=== PATIENT | male | born 1955 | race Caucasian/White ===

== ENCOUNTER 2017-09-02 02:23 | Emergency (ER) | payer OTHER ==
[2017-09-02 03:01] LABS: #Eosinphils 0.1 thou/uL (0.0-0.7); #Lymphocytes 1.1 thou/uL (1.20-3.40); #Neutrophils 5.6 thou/uL (1.40-6.50); %Basophils 0.4 % (0.0-1.0); %Eosinophils 1.3 % (0.0-10.0); %Lymphocytes 14.3 % (21.0-51.0); %Monocytes 12.2 % (0.0-10.0); %Neutrophils 71.8 % (42.0-75.0); Hemoglobin 15.7 g/dL (14.0-18.0); Mean Corpuscular HGB CONC 33.1 g/dL (32.0-36.0); Mean Corpuscular Hemoglobin 31.4 pg (27.0-31.0); Mean Corpuscular Volume 94.7 fl (80.0-94.0); Mean Platelet Volume 6.2 fL (7.4-10.4); Platelet Count 191 thou/uL (130-400); RBC Distribution Width 12.2 % (11.5-14.5); White Blood Cell (WBC) Count 7.8 thou/uL (4.8-10.8)
[2017-09-02] MEDS ORDERED: Morphine 4 MG/ML VIAL ONE (03:08)
[2017-09-02 03:22] LABS: ALT (SGPT) 28 U/L (8-55); AST (SGOT) 23 U/L (5-34); Alkaline Phosphatase 47 U/L (40-150); Anion Gap 7 mmol/L (10-20); BUN (Urea Nitrogen) 17 mg/dL (8.4-25.7); Bilirubin, Total 0.3 mg/dL (0.2-1.2); CK (CPK) 79 U/L (30-200); Calc. Creatinine Clearance 0 mL/min (70-130); Calcium 9.6 mg/dL (7.8-10.44); Carbon Dioxide 29 mmol/L (22-29); Chloride 107 mmol/L (98-107); Estimated GFR-MDRD 90; Globulin 2.7 g/dL (2.4-3.5); Glucose 138 mg/dL (70-105); Potassium 4.3 mmol/L (3.5-5.1); Protein, Total 6.7 g/dL (6.0-8.3); Sodium 139 mmol/L (136-145)
[2017-09-02 03:25] LABS: Troponin I Less than 0.010 ng/mL (< 0.028)
[2017-09-02] MEDS ORDERED: Lidocaine Viscous Sol 2% 15 ml UD Cup ONE (04:17)
[2017-09-02] MEDS ORDERED: Mag-Al 1200 mg/1200 mg/30 ML UDCUP ONE (04:17)
--- NOTE | 2017-09-02 08:21 | CT ---
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 Pain is central in location, worse with deep breathing, sharp in nature. Denies similar symptoms i n past. TECHNIQUE: Axial computed tomographic angiography images of the chest with intravenous contrast using pulmonary embolism protocol. MIP reconstructed images were created and reviewed. Coronal and sagittal reformatted images were created and reviewed. Oblique reformatted images were created and reviewed. COMPARISON: No relevant prior studies available. FINDINGS: Pulmonary arteries: No evidence of pulmonary embolism. Aorta: Normal caliber thoracic aorta without dissection or aneurysm. Lungs: No alveolar infiltrate. Minimal atelectasis within the posterior right lung and posteromedial left lower lobe. Left lower lobe linear parenchymal scarring or subsegmental collapse / atelectasis. Small calcified granulomas left mid lung. No mass. Pleural space: No pleural fluid collection. No pneumothorax. Heart: No pericardial effusion. No evidence of RV dysfunction. Bones/joints: No acute fracture. No dislocation. Soft tissues: Unremarkable. Lymph nodes: No pathologically enlarged lymph nodes. Pancreas: Pancreatic fatty infiltration. IMPRESSION: 1. No evidence of pulmonary embolism. 2. No alveolar infiltrate. 3. Minimal atelectasis within the posterior right lung and posteromedial left lower lobe. Left lower lobe linear parenchymal scarring or subsegmental collapse / atelectasis. Thank you for allowing us to participate in the care of your patient. Dictated and Authenticated by: Wyatt Champion MD 09/02/2017 4:26 AM Central Time ([place] & [place]) FINAL REPORT EMERGENCY AFTER HOURS CT ANGIO OF CHEST PERFORMED WITH IV CONTRAST ENHANCEMENT WITH 3D RECONSTRUCTION S: Date: 09/02/17 HISTORY: Chest pain, onset today. Shortness of breath. FINDINGS: The lungs are clear of any confluent infiltrative process. There are atelectatic changes in both lung bases. No pulmonary nodules are identified. No significant mediastinal or hilar adenopathy. Thoracic aorta is normal in caliber. No signs for dissection. There is fairly good pulmonary artery o pacification. There is no CT evidence for pulmonary embolus. Visualized liver parenchyma shows no focal findings. Right and left adrenal glands are normal in appe arance. IMPRESSION: No CT evidence for pulmonary embolus. This report is in agreement with the preliminary report issued by [facility]. POS: [facility]
--- NOTE | 2017-09-02 08:44 | RAD ---
PORTABLE CHEST 1 VIEW: Date: 09/02/17 Time: 0247 hours HISTORY: Chest pain. FINDINGS: Comparison made with exam of 11/03/04. The heart size is borderline. No focal areas of consolidation, pneumothorax, eve pulmonary edema, o r pleural effusions are seen. IMPRESSION: No acute process. POS: [facility]
[2017-09-02] MEDS ORDERED: ISOVUE-370 76%-LOCM 1 ML ONE (11:39)
== END 2017-09-02 05:37 | disposition home or self-care (01) ==
LOC: ERS 02:23
DX: R07.89 Other chest pain (principal)
CPT/HCPCS: 71045; 71275; 80053; 82553; 83880; 84484; 85025; 93005; 94760; 96374; J2270

== ENCOUNTER 2019-04-09 15:18 | Emergency (ER) | payer OTHER ==
[~2019-04-09 15:18] MED LIST: Iopamidol-370 76% 500 ML 1 ML ONE
--- NOTE | 2019-04-09 16:11 | RAD ---
XR Chest 1 View Portable HISTORY: Cough, congestion, shortness of breath COMPARISON: 09/02/2017 FINDINGS: The heart size is enlarged.. The lungs are well expanded without focal areas of consolidati on, pneumothorax or pleural effusions. IMPRESSION: No radiographic evidence of acute cardiopulmonary process.
[2019-04-09 16:17] LABS: #Eosinphils 0.1 thou/uL (0.0-0.7); #Lymphocytes 1.4 thou/uL (1.20-3.40); #Monocytes 0.6 thou/uL (0.11-0.59); #Neutrophils 2.6 thou/uL (1.40-6.50); %Basophils 0.8 % (0.0-1.0); %Eosinophils 1.9 % (0.0-10.0); %Lymphocytes 29.5 % (21.0-51.0); %Monocytes 12.7 % (0.0-10.0); %Neutrophils 55.1 % (42.0-75.0); Hemoglobin 16.5 g/dL (14.0-18.0); Mean Corpuscular HGB CONC 32.2 g/dL (32.0-36.0); Mean Corpuscular Hemoglobin 30.5 pg (27.0-31.0); Mean Corpuscular Volume 94.7 fL (78.0-98.0); Mean Platelet Volume 8.1 fL (7.4-10.4); Platelet Count 164 thou/uL (130-400); RBC Distribution Width 12.6 % (11.5-14.5); White Blood Cell (WBC) Count 4.7 thou/uL (4.8-10.8)
[2019-04-09 16:40] LABS: ALT (SGPT) 42 U/L (8-55); AST (SGOT) 37 U/L (5-34); Albumin 3.7 g/dL (3.4-4.8); Alkaline Phosphatase 52 U/L (40-110); Anion Gap 15 mmol/L (10-20); BUN (Urea Nitrogen) 15 mg/dL (8.4-25.7); Bilirubin, Total 0.2 mg/dL (0.2-1.2); Calc. Creatinine Clearance 0 mL/min (70-130); Calcium 8.4 mg/dL (7.8-10.44); Carbon Dioxide 25 mmol/L (23-31); Chloride 104 mmol/L (98-107); Estimated GFR-MDRD 83; Globulin 3.8 g/dL (2.4-3.5); Glucose 113 mg/dL (80-115); Lipase 18 U/L (8-78); Potassium 4.8 mmol/L (3.5-5.1); Protein, Total 7.5 g/dL (5.8-8.1); Sodium 139 mmol/L (136-145)
[2019-04-09 16:53] LABS: Bilirubin Negative (Negative); Blood, Urine Negative (Negative); Clarity Clear (Clear); Glucose, Urine (Dipstick) Normal (Negative); Leukocyte Negative Leu/uL (Negative); Nitrite Negative (Negative); Protein, Urine (Dipstick) 20 mg/dL (Neg-Trace); Urobilinogen Normal mg/dL (Less than 2)
--- NOTE | 2019-04-09 17:50 | CT ---
CT ANGIO OF CHEST PERFORMED WITH IV CONTRAST ENHANCEMENT AND 3D RECONSTRUCTIONS: Date: 04/09/19 HISTORY: Cough, congestion, and shortness of breath. COMPARISON: 09/02/17 exam. FINDINGS: The lung bases are clear of any infiltrative process. Linear interstitial change in the bases compati ble with some atelectatic change. There is no significant mediastinal, hilar, or axillary adenopathy. The thoracic aorta is normal in c aliber. There is fairly good pulmonary artery opacification. Small peripheral emboli are not definite ly excluded, but I see no evidence for pulmonary embolus. Visualized liver parenchyma shows no focal findings. IMPRESSION: No CT evidence of pulmonary embolus. POS: [facility]
== END 2019-04-09 18:20 | disposition home or self-care (01) ==
LOC: ERS 15:18
DX: J45.901 Unspecified asthma with (acute) exacerbation (principal); Z79.899 Other long term (current) drug therapy; Z79.51 Long term (current) use of inhaled steroids
CPT/HCPCS: 71045; 71275; 80053; 81003; 83690; 83880; 84484; 85025; 85379; 93005; 94640; J7620; Q9967

== ENCOUNTER 2021-04-15 06:47 | Inpatient (IN) | payer OTHER ==
[2021-04-15 07:50] LABS: Hemoglobin 15.8 g/dL (14.0-18.0); Mean Corpuscular Hemoglobin 31.5 pg (27.0-31.0); Mean Corpuscular Volume 95.5 fL (78.0-98.0); Mean Platelet Volume 7.5 fL (7.4-10.4); Platelet Count 140 thou/uL (130-400); RBC Distribution Width 12.2 % (11.5-14.5); Red Blood Cell (RBC) Count 5.02 mill/uL (4.70-6.10); White Blood Cell (WBC) Count 4.4 thou/uL (4.8-10.8)
[2021-04-15] MEDS ORDERED: Dexamethasone 10 MG/ML VIAL ONE (07:50)
[2021-04-15 08:06] LABS: ALT (SGPT) 26 U/L (8-55); AST (SGOT) 36 U/L (5-34); Albumin 3.7 g/dL (3.4-4.8); Alkaline Phosphatase 40 U/L (40-110); Anion Gap 14 mmol/L (10-20); BUN (Urea Nitrogen) 15 mg/dL (8.4-25.7); Bilirubin, Total 0.3 mg/dL (0.2-1.2); Calc. Creatinine Clearance 0 mL/min (70-130); Calcium 8.8 mg/dL (7.8-10.44); Carbon Dioxide 29 mmol/L (23-31); Chloride 95 mmol/L (98-107); Globulin 3.3 g/dL (2.4-3.5); Glucose 124 mg/dL (80-115); Potassium 4.1 mmol/L (3.5-5.1); Sodium 134 mmol/L (136-145)
[2021-04-15 08:11] LABS: Band 25 % (5-11); Lymphocytes 11 % (21-51); MDiff Complete? YES; Monocytes 9 % (0-10); Myelocyte 1 % (0-0); Neutrophil 52 % (42-75); Platelet Morphology Comment Appears Adequate; Polychromasia SLIGHT = 2-3 cells (100X) (0-2/hpf); Reactive Lymphocytes 2 % (0-10)
[2021-04-15] MEDS ORDERED: Azithromycin 500 MG VIAL ONE (09:22)
[2021-04-15] MEDS ORDERED: cefTRIAXone\\ROCEPHIN 1 GM VIAL ONE (09:22)
[2021-04-15] MEDS ORDERED: Promethazine HCl 25 MG in Sodium Chloride 0.9% 50 ML IVPB PRN (11:54)
[2021-04-15] MEDS ORDERED: Bisacodyl 5 MG TAB PO PRN (11:54)
[2021-04-15] MEDS ORDERED: hydrALAZINE 20 MG/ML VIAL SLOW IVP PRN (11:54)
[2021-04-15] MEDS: GUAIFENESIN SF SOLN 200 MG/10 ML UDCUP PO PRN (21:01)
[2021-04-15] MEDS: Benzonatate 100 MG CAP PO PRN (21:01)
[2021-04-15] MEDS: Acetaminophen 325 MG TAB PO PRN (21:01)
[2021-04-15] MEDS: Melatonin 3 MG TAB PO PRN (21:01)
[2021-04-15] MEDS: Dexamethasone 10 MG/ML VIAL SLOW IVP SCH (21:06)
[2021-04-15] MEDS ORDERED: Ondansetron PF 4 MG/2 ML Vial IVP PRN (21:09)
[2021-04-15] MEDS ORDERED: Ondansetron ODT 4 MG TAB SL PRN (21:09)
[2021-04-15] MEDS ORDERED: Acetaminophen 325 MG TAB PO PRN (21:09)
[2021-04-16 08:00] LABS: #Lymphocytes 0.6 thou/uL (1.20-3.40); #Monocytes 0.4 thou/uL (0.11-0.59); #Neutrophils 2.6 thou/uL (1.40-6.50); %Basophils 0.2 % (0.0-1.0); %Eosinophils 0.2 % (0.0-10.0); %Lymphocytes 16.6 % (21.0-51.0); %Monocytes 10.7 % (0.0-10.0); %Neutrophils 72.3 % (42.0-75.0); Hemoglobin 15.2 g/dL (14.0-18.0); Mean Corpuscular Hemoglobin 31.1 pg (27.0-31.0); Mean Corpuscular Volume 97.4 fL (78.0-98.0); Mean Platelet Volume 7.5 fL (7.4-10.4); Platelet Count 158 thou/uL (130-400); RBC Distribution Width 12.4 % (11.5-14.5); Red Blood Cell (RBC) Count 4.89 mill/uL (4.70-6.10); White Blood Cell (WBC) Count 3.7 thou/uL (4.8-10.8)
[2021-04-16 08:20] LABS: Anion Gap 13 mmol/L (10-20); BUN (Urea Nitrogen) 15 mg/dL (8.4-25.7); Calc. Creatinine Clearance 179 mL/min (70-130); Calcium 8.5 mg/dL (7.8-10.44); Carbon Dioxide 28 mmol/L (23-31); Chloride 100 mmol/L (98-107); Glucose 118 mg/dL (80-115); Potassium 4.3 mmol/L (3.5-5.1); Sodium 137 mmol/L (136-145)
[2021-04-16] MEDS: cefTRIAXone\\ROCEPHIN 1 GM in Sodium Chloride 0.9% 100 ML IVPB SCH (09:04)
[2021-04-16] MEDS: Dexamethasone 10 MG/ML VIAL SLOW IVP SCH ×2 (09:05→19:48)
[2021-04-16] MEDS: Enoxaparin Sodium 40 MG/0.4 ML SYRINGE SC SCH (09:05)
[2021-04-16] MEDS: Zinc Sulfate 220 MG CAP PO SCH (09:05)
[2021-04-16] MEDS: Ascorbic Acid 500 mg Chewable Tablet PO SCH (09:05)
[2021-04-16] MEDS: Azithromycin 500 MG in Sodium Chloride 0.9% 250 ML 250 ML IVPB SCH (10:56)
[2021-04-16] MEDS: Benzonatate 100 MG CAP PO PRN ×2 (13:05→19:54)
[2021-04-16] MEDS: GUAIFENESIN SF SOLN 200 MG/10 ML UDCUP PO PRN ×2 (13:05→19:54)
[2021-04-16] MEDS: Melatonin 3 MG TAB PO PRN (19:54)
[2021-04-16] MEDS: Acetaminophen 325 MG TAB PO PRN (19:55)
[2021-04-17] MEDS: GUAIFENESIN SF SOLN 200 MG/10 ML UDCUP PO PRN ×3 (00:03→20:08)
[2021-04-17] MEDS: Zinc Sulfate 220 MG CAP PO SCH (09:29)
[2021-04-17] MEDS: Ascorbic Acid 500 mg Chewable Tablet PO SCH (09:29)
[2021-04-17] MEDS: Dexamethasone 10 MG/ML VIAL SLOW IVP SCH ×2 (09:30→20:09)
[2021-04-17] MEDS: cefTRIAXone\\ROCEPHIN 1 GM in Sodium Chloride 0.9% 100 ML IVPB SCH (09:30)
[2021-04-17] MEDS: Enoxaparin Sodium 40 MG/0.4 ML SYRINGE SC SCH (09:30)
[2021-04-17 09:41] LABS: #Lymphocytes 0.5 thou/uL (1.20-3.40); #Monocytes 0.5 thou/uL (0.11-0.59); #Neutrophils 3.4 thou/uL (1.40-6.50); %Basophils 0.6 % (0.0-1.0); %Eosinophils 0.4 % (0.0-10.0); %Lymphocytes 12.1 % (21.0-51.0); Hemoglobin 15.5 g/dL (14.0-18.0); Mean Corpuscular HGB CONC 30.8 g/dL (32.0-36.0); Mean Corpuscular Hemoglobin 30.2 pg (27.0-31.0); Platelet Count 199 thou/uL (130-400); RBC Distribution Width 12.4 % (11.5-14.5); Red Blood Cell (RBC) Count 5.12 mill/uL (4.70-6.10); White Blood Cell (WBC) Count 4.4 thou/uL (4.8-10.8)
[2021-04-17 09:55] LABS: Anion Gap 15 mmol/L (10-20); BUN (Urea Nitrogen) 16 mg/dL (8.4-25.7); Calc. Creatinine Clearance 163 mL/min (70-130); Calcium 8.3 mg/dL (7.8-10.44); Carbon Dioxide 29 mmol/L (23-31); Chloride 98 mmol/L (98-107); Glucose 133 mg/dL (80-115); Potassium 4.2 mmol/L (3.5-5.1); Sodium 138 mmol/L (136-145)
[2021-04-17] MEDS: Azithromycin 500 MG in Sodium Chloride 0.9% 250 ML 250 ML IVPB SCH (12:01)
[2021-04-17] MEDS: Benzonatate 100 MG CAP PO PRN ×2 (12:17→20:09)
[2021-04-17] MEDS: Melatonin 3 MG TAB PO PRN (20:09)
[2021-04-17] MEDS: Acetaminophen 325 MG TAB PO PRN (20:31)
[2021-04-18] MEDS: Benzonatate 100 MG CAP PO PRN (04:57)
[2021-04-18] MEDS: Acetaminophen 325 MG TAB PO PRN (04:57)
[2021-04-18] MEDS: GUAIFENESIN SF SOLN 200 MG/10 ML UDCUP PO PRN ×2 (04:57→09:10)
[2021-04-18 07:33] LABS: #Lymphocytes 0.5 thou/uL (1.20-3.40); #Monocytes 0.5 thou/uL (0.11-0.59); #Neutrophils 3.8 thou/uL (1.40-6.50); %Basophils 0.3 % (0.0-1.0); %Eosinophils 0.2 % (0.0-10.0); %Lymphocytes 9.6 % (21.0-51.0); %Monocytes 10.2 % (0.0-10.0); %Neutrophils 79.7 % (42.0-75.0); Hemoglobin 15.4 g/dL (14.0-18.0); Mean Corpuscular HGB CONC 30.7 g/dL (32.0-36.0); Mean Corpuscular Hemoglobin 30.3 pg (27.0-31.0); Mean Corpuscular Volume 98.6 fL (78.0-98.0); Mean Platelet Volume 7.4 fL (7.4-10.4); Platelet Count 205 thou/uL (130-400); RBC Distribution Width 12.4 % (11.5-14.5); Red Blood Cell (RBC) Count 5.07 mill/uL (4.70-6.10); White Blood Cell (WBC) Count 4.8 thou/uL (4.8-10.8)
[2021-04-18 07:44] LABS: Anion Gap 13 mmol/L (10-20); BUN (Urea Nitrogen) 18 mg/dL (8.4-25.7); Calc. Creatinine Clearance 174 mL/min (70-130); Calcium 8.5 mg/dL (7.8-10.44); Carbon Dioxide 31 mmol/L (23-31); Chloride 99 mmol/L (98-107); Glucose 146 mg/dL (80-115); Potassium 4.6 mmol/L (3.5-5.1); Sodium 138 mmol/L (136-145)
[2021-04-18] MEDS: cefTRIAXone\\ROCEPHIN 1 GM in Sodium Chloride 0.9% 100 ML IVPB SCH (09:03)
[2021-04-18] MEDS: Ascorbic Acid 500 mg Chewable Tablet PO SCH (09:05)
[2021-04-18] MEDS: Enoxaparin Sodium 40 MG/0.4 ML SYRINGE SC SCH (09:05)
[2021-04-18] MEDS: Zinc Sulfate 220 MG CAP PO SCH (09:05)
[2021-04-18] MEDS: Dexamethasone 10 MG/ML VIAL SLOW IVP SCH ×2 (09:05→21:07)
[2021-04-18] MEDS: Azithromycin 500 MG in Sodium Chloride 0.9% 250 ML 250 ML IVPB SCH (13:03)
[2021-04-18] MEDS ORDERED: BARICITINIB 2 MG TAB PO SCH (18:00)
[2021-04-18] MEDS: Enoxaparin Sodium 60 MG/0.6 ML SYRINGE SC SCH (21:07)
[2021-04-18 23:09] LABS: Base Excess (BEa) 9.2 mEq/L (-2.0 to +3.0); CO2 Tension 56.9 mmHg (35.0-45.0); Calcium, Ionized (arterial) 1.11 mmol/L (1.12-1.30); Carboxyhemoglobin (COHb) 0.4 gm% (0.0-3.0); Hemoglobin (Hb) 15.8 g/dL (14.0-18.0); Potassium - ABG Lab 4.37 mmol/L (3.70-5.30); pH, Arterial 7.42 (7.35-7.45)
[2021-04-18 23:14] LABS: O2 Tension (PaO2), arterial 44.7 mmHg (> 80.0)
[2021-04-18 23:15] LABS: ALV-art Gradient 597.175 mmHg (0-20); Puncture Site LRA
[2021-04-18 23:49] LABS: Actual Bicarbonate (HCO3a) 33.7 mEq/L (22-28); Base Excess (BEa) 7.5 mEq/L (-2.0 to +3.0); CO2 Tension 52.5 mmHg (35.0-45.0); Carboxyhemoglobin (COHb) 0.1 gm% (0.0-3.0); Hemoglobin (Hb) 15.7 g/dL (14.0-18.0); Potassium - ABG Lab 4.42 mmol/L (3.70-5.30); pH, Arterial 7.43 (7.35-7.45)
[2021-04-18 23:50] LABS: Puncture Site RRA
[2021-04-18 23:51] LABS: ALV-art Gradient 601.375 mmHg (0-20)
[2021-04-19] MEDS ORDERED: Fentanyl BOLUS 250 ML IVPB PRN (00:30)
[2021-04-19] MEDS ORDERED: Fentanyl CADD 100 ML IV SCH (00:30)
[2021-04-19] MEDS ORDERED: Morphine 2 MG/ML VIAL SLOW IVP PRN (00:30)
[2021-04-19] MEDS ORDERED: DISCONTINUE PREVIOUS NARCOTIC PAIN MEDICATIONS AND BENZODIAZEPINES FS SCH (00:30)
[2021-04-19] MEDS ORDERED: Propofol BOLUS 1,000 MG/100 ML VIAL IV PRN (00:30)
[2021-04-19] MEDS: Lorazepam 2 MG/ML VIAL SLOW IVP PRN ×3 (00:43→01:49)
[2021-04-19] MEDS: Propofol 1,000 MG/100 ML VIAL IV PRN ×9 (00:44→23:49)
[2021-04-19] MEDS ORDERED: Midazolam HCl 2 mg/2 ml Vial ONE (00:45)
[2021-04-19] MEDS ORDERED: Rocuronium Bromide 10 MG/ML (10ML VIAL) ONE (00:46)
[2021-04-19] MEDS: Rocuronium Bromide 10 MG/ML (10ML VIAL) IVP SCH ×2 (00:50→06:19)
[2021-04-19] MEDS: fentaNYL Citrate-0.9 % NaCl/PF 100 ML IV SCH (01:15)
[2021-04-19] MEDS ORDERED: Sterile Water 10 ML VIAL FS PRN (01:19)
[2021-04-19] MEDS: Vecuronium 10 MG VIAL IVP PRN (01:49)
[2021-04-19] MEDS ORDERED: Vecuronium 10 MG VIAL IVP SCH (02:00)
[2021-04-19 02:47] LABS: Actual Bicarbonate (HCO3a) 30.5 mEq/L (22-28); Base Excess (BEa) 9.2 mEq/L (-2.0 to +3.0); CO2 Tension 31.5 mmHg (35.0-45.0); Calcium, Ionized (arterial) 1.06 mmol/L (1.12-1.30); Carboxyhemoglobin (COHb) 0.2 gm% (0.0-3.0); Hemoglobin (Hb) 15.6 g/dL (14.0-18.0); Potassium - ABG Lab 4.55 mmol/L (3.70-5.30)
[2021-04-19 02:48] LABS: ALV-art Gradient 588.625 mmHg (0-20); Puncture Site LRA
[2021-04-19 04:53] LABS: #Lymphocytes 0.6 thou/uL (1.20-3.40); #Monocytes 0.4 thou/uL (0.11-0.59); #Neutrophils 4.3 thou/uL (1.40-6.50); %Basophils 0.1 % (0.0-1.0); %Eosinophils 0.1 % (0.0-10.0); %Lymphocytes 11.5 % (21.0-51.0); %Monocytes 6.9 % (0.0-10.0); %Neutrophils 81.3 % (42.0-75.0); Mean Corpuscular HGB CONC 31.9 g/dL (32.0-36.0); Mean Corpuscular Hemoglobin 30.8 pg (27.0-31.0); Mean Corpuscular Volume 96.7 fL (78.0-98.0); Mean Platelet Volume 7.4 fL (7.4-10.4); Platelet Count 210 thou/uL (130-400); RBC Distribution Width 12.3 % (11.5-14.5); Red Blood Cell (RBC) Count 4.87 mill/uL (4.70-6.10); White Blood Cell (WBC) Count 5.3 thou/uL (4.8-10.8)
[2021-04-19 05:10] LABS: Anion Gap 17 mmol/L (10-20); BUN (Urea Nitrogen) 21 mg/dL (8.4-25.7); CRP (Inflammatory) 3.44 mg/dL (= or < 0.5); Calc. Creatinine Clearance 150 mL/min (70-130); Calcium 8.2 mg/dL (7.8-10.44); Carbon Dioxide 29 mmol/L (23-31); Chloride 97 mmol/L (98-107); Glucose 194 mg/dL (80-115); Potassium 4.6 mmol/L (3.5-5.1); Sodium 138 mmol/L (136-145)
[2021-04-19] MEDS: BARICITINIB 2 MG TAB PO SCH (08:51)
[2021-04-19] MEDS: Zinc Sulfate 220 MG CAP PO SCH (08:51)
[2021-04-19] MEDS: Dexamethasone 10 MG/ML VIAL SLOW IVP SCH (08:51)
[2021-04-19] MEDS: Ascorbic Acid 500 mg Chewable Tablet PO SCH (08:51)
[2021-04-19] MEDS: cefTRIAXone\\ROCEPHIN 1 GM in Sodium Chloride 0.9% 100 ML IVPB SCH (08:52)
[2021-04-19] MEDS: Enoxaparin Sodium 60 MG/0.6 ML SYRINGE SC SCH ×2 (08:52→20:57)
[2021-04-19] MEDS: Azithromycin 500 MG in Sodium Chloride 0.9% 250 ML 250 ML IVPB SCH (12:13)
[2021-04-19] MEDS: [UNRECOGNIZED DRUG - OTHER] IVPB SCH (14:08)
[2021-04-19] MEDS: METHYLPREDNISOLONE SOD SUCC IVPB SCH (14:08)
[2021-04-19] MEDS: ADMIXTURE FEE IVPB SCH (14:08)
[2021-04-20] MEDS: Lorazepam 2 MG/ML VIAL SLOW IVP PRN ×3 (01:43→16:47)
[2021-04-20] MEDS: fentaNYL Citrate-0.9 % NaCl/PF 100 ML IV SCH (03:15)
[2021-04-20] MEDS: Propofol 1,000 MG/100 ML VIAL IV PRN ×7 (03:16→22:49)
[2021-04-20 04:52] LABS: Anion Gap 15 mmol/L (10-20); BUN (Urea Nitrogen) 31 mg/dL (8.4-25.7); CRP (Inflammatory) 3.99 mg/dL (= or < 0.5); Calc. Creatinine Clearance 142 mL/min (70-130); Carbon Dioxide 29 mmol/L (23-31); Chloride 99 mmol/L (98-107); Glucose 177 mg/dL (80-115); Sodium 139 mmol/L (136-145)
[2021-04-20 06:27] LABS: Band 5 % (5-11); Hemoglobin 14.5 g/dL (14.0-18.0); Lymphocytes 14 % (21-51); MDiff Complete? YES; Mean Corpuscular HGB CONC 32.2 g/dL (32.0-36.0); Mean Corpuscular Hemoglobin 30.8 pg (27.0-31.0); Mean Corpuscular Volume 95.5 fL (78.0-98.0); Mean Platelet Volume 7.3 fL (7.4-10.4); Monocytes 9 % (0-10); Neutrophil 69 % (42-75); Platelet Count 242 thou/uL (130-400); RBC Distribution Width 12.3 % (11.5-14.5); Reactive Lymphocytes 3 % (0-10); Red Blood Cell (RBC) Count 4.71 mill/uL (4.70-6.10); White Blood Cell (WBC) Count 5.8 thou/uL (4.8-10.8)
[2021-04-20] MEDS: Vecuronium 10 MG VIAL IVP PRN ×8 (07:40→22:49)
[2021-04-20] MEDS ORDERED: Pantoprazole 40 MG GRANULES PACKET PO SCH (09:00)
[2021-04-20] MEDS: Zinc Sulfate 220 MG CAP PO SCH (09:08)
[2021-04-20] MEDS: Ascorbic Acid 500 mg Chewable Tablet PO SCH (09:08)
[2021-04-20] MEDS: cefTRIAXone\\ROCEPHIN 1 GM in Sodium Chloride 0.9% 100 ML IVPB SCH (09:09)
[2021-04-20] MEDS: Enoxaparin Sodium 60 MG/0.6 ML SYRINGE SC SCH ×2 (09:09→20:36)
[2021-04-20] MEDS: BARICITINIB 2 MG TAB PO SCH (09:10)
[2021-04-20] MEDS: Azithromycin 500 MG in Sodium Chloride 0.9% 250 ML 250 ML IVPB SCH (11:27)
[2021-04-20] MEDS ORDERED: Dextrose 5% in Water 1,000 ML IV PRN (12:09)
[2021-04-20] MEDS ORDERED: Dextrose 50% Abboject 50 ML SYRINGE SLOW IVP PRN (12:09)
[2021-04-20] MEDS: HumaLOG 300 UNITS/3 ML VIAL SC PRN ×2 (17:15→21:21)
[2021-04-21] MEDS: Propofol 1,000 MG/100 ML VIAL IV PRN ×6 (01:19→23:27)
[2021-04-21] MEDS: Vecuronium 10 MG VIAL IVP PRN ×5 (01:20→16:09)
[2021-04-21] MEDS: HumaLOG 300 UNITS/3 ML VIAL SC PRN ×4 (02:00→18:31)
[2021-04-21 04:43] LABS: Band 5 % (5-11); Hemoglobin 14.9 g/dL (14.0-18.0); Lymphocytes 9 % (21-51); MDiff Complete? YES; Mean Corpuscular HGB CONC 31.6 g/dL (32.0-36.0); Mean Corpuscular Hemoglobin 30.3 pg (27.0-31.0); Mean Corpuscular Volume 95.8 fL (78.0-98.0); Mean Platelet Volume 7.2 fL (7.4-10.4); Monocytes 10 % (0-10); Neutrophil 76 % (42-75); Platelet Count 284 thou/uL (130-400); Platelet Morphology Comment Appears Adequate; RBC Distribution Width 12.3 % (11.5-14.5); RBC Morphology Normal; Red Blood Cell (RBC) Count 4.91 mill/uL (4.70-6.10); White Blood Cell (WBC) Count 6.8 thou/uL (4.8-10.8)
[2021-04-21 04:46] LABS: ALT (SGPT) 69 U/L (8-55); AST (SGOT) 50 U/L (5-34); Alkaline Phosphatase 42 U/L (40-110); Anion Gap 13 mmol/L (10-20); BUN (Urea Nitrogen) 28 mg/dL (8.4-25.7); Bilirubin, Direct 0.2 mg/dL (0.1-0.3); Bilirubin, Total 0.4 mg/dL (0.2-1.2); Calc. Creatinine Clearance 147 mL/min (70-130); Calcium 8.2 mg/dL (7.8-10.44); Carbon Dioxide 31 mmol/L (23-31); Chloride 100 mmol/L (98-107); Glucose 183 mg/dL (80-115); Protein, Total 5.9 g/dL (5.8-8.1); Sodium 140 mmol/L (136-145)
[2021-04-21] MEDS ORDERED: Electrolyte Replacement Protocol 1 EACH FS SCH (09:30)
[2021-04-21] MEDS ORDERED: Electrolyte Replacement Protocol FS PRN (09:30)
[2021-04-21] MEDS: Enoxaparin Sodium 60 MG/0.6 ML SYRINGE SC SCH ×2 (09:33→20:43)
[2021-04-21] MEDS: BARICITINIB 2 MG TAB PO SCH (09:33)
[2021-04-21] MEDS: cefTRIAXone\\ROCEPHIN 1 GM in Sodium Chloride 0.9% 100 ML IVPB SCH (09:33)
[2021-04-21] MEDS: Lansoprazole 3 MG/ML ORAL SUSPENSION PER TUBE SCH (09:34)
[2021-04-21] MEDS: Zinc Sulfate 220 MG CAP PO SCH (09:34)
[2021-04-21] MEDS: Ascorbic Acid 500 mg Chewable Tablet PO SCH (09:34)
[2021-04-21] MEDS: Azithromycin 500 MG in Sodium Chloride 0.9% 250 ML 250 ML IVPB SCH (12:35)
[2021-04-21] MEDS: fentaNYL Citrate-0.9 % NaCl/PF 100 ML IV SCH (12:35)
[2021-04-21] MEDS: ADMIXTURE FEE IVPB SCH (16:09)
[2021-04-21] MEDS: METHYLPREDNISOLONE SOD SUCC IVPB SCH (16:09)
[2021-04-21] MEDS: [UNRECOGNIZED DRUG - OTHER] IVPB SCH (16:09)
[2021-04-21] MEDS: Lorazepam 2 MG/ML VIAL SLOW IVP PRN (16:10)
[2021-04-22] MEDS: Propofol 1,000 MG/100 ML VIAL IV PRN ×6 (03:27→20:39)
[2021-04-22 04:38] LABS: Anion Gap 15 mmol/L (10-20); BUN (Urea Nitrogen) 27 mg/dL (8.4-25.7); Calc. Creatinine Clearance 155 mL/min (70-130); Carbon Dioxide 28 mmol/L (23-31); Chloride 101 mmol/L (98-107); Glucose 186 mg/dL (80-115); Phosphorus 3.7 mg/dL (2.3-4.7); Potassium 4.5 mmol/L (3.5-5.1); Sodium 139 mmol/L (136-145)
[2021-04-22 05:09] LABS: Band 6 % (5-11); Hemoglobin 14.7 g/dL (14.0-18.0); Lymphocytes 7 % (21-51); MDiff Complete? YES; Mean Corpuscular HGB CONC 31.7 g/dL (32.0-36.0); Mean Corpuscular Hemoglobin 30.4 pg (27.0-31.0); Mean Corpuscular Volume 95.9 fL (78.0-98.0); Mean Platelet Volume 7.1 fL (7.4-10.4); Monocytes 6 % (0-10); Neutrophil 81 % (42-75); Platelet Count 297 thou/uL (130-400); RBC Distribution Width 12.4 % (11.5-14.5); Red Blood Cell (RBC) Count 4.83 mill/uL (4.70-6.10); White Blood Cell (WBC) Count 6.8 thou/uL (4.8-10.8)
[2021-04-22] MEDS: Zinc Sulfate 220 MG CAP PO SCH (10:13)
[2021-04-22] MEDS: Enoxaparin Sodium 60 MG/0.6 ML SYRINGE SC SCH ×2 (10:13→20:39)
[2021-04-22] MEDS: Azithromycin 500 MG in Sodium Chloride 0.9% 250 ML 250 ML IVPB SCH (10:13)
[2021-04-22] MEDS: BARICITINIB 2 MG TAB PO SCH (10:14)
[2021-04-22] MEDS: Ascorbic Acid 500 mg Chewable Tablet PO SCH (10:14)
[2021-04-22] MEDS: Lansoprazole 3 MG/ML ORAL SUSPENSION PER TUBE SCH (10:34)
[2021-04-22 10:37] LABS: Actual Bicarbonate (HCO3a) 31.2 mEq/L (22-28); Base Excess (BEa) 5.3 mEq/L (-2.0 to +3.0); CO2 Tension 49.5 mmHg (35.0-45.0); Calcium, Ionized (arterial) 1.13 mmol/L (1.12-1.30); Carboxyhemoglobin (COHb) 0.4 gm% (0.0-3.0); Hemoglobin (Hb) 16.1 g/dL (14.0-18.0); O2 Tension (PaO2), arterial 77.2 mmHg (> 80.0); Potassium - ABG Lab 4.46 mmol/L (3.70-5.30); pH, Arterial 7.42 (7.35-7.45)
[2021-04-22 10:38] LABS: ALV-art Gradient 146.125 mmHg (0-20); Puncture Site LRA
[2021-04-22] MEDS: HumaLOG 300 UNITS/3 ML VIAL SC PRN ×3 (12:02→21:35)
[2021-04-22] MEDS: cefTRIAXone\\ROCEPHIN 1 GM in Sodium Chloride 0.9% 100 ML IVPB SCH (12:25)
[2021-04-22] MEDS: Acetaminophen 325 MG TAB PO PRN (13:30)
[2021-04-22] MEDS: Lorazepam 2 MG/ML VIAL SLOW IVP PRN (20:39)
[2021-04-22] MEDS: ADMIXTURE FEE IVPB SCH (20:39)
[2021-04-22] MEDS: [UNRECOGNIZED DRUG - OTHER] IVPB SCH (20:39)
[2021-04-22] MEDS: METHYLPREDNISOLONE SOD SUCC IVPB SCH (20:39)
[2021-04-23] MEDS: Lorazepam 2 MG/ML VIAL SLOW IVP PRN ×7 (01:38→20:18)
[2021-04-23] MEDS: Propofol 1,000 MG/100 ML VIAL IV PRN ×8 (01:39→23:51)
[2021-04-23 04:03] LABS: Mean Corpuscular HGB CONC 31.8 g/dL (32.0-36.0); Mean Corpuscular Hemoglobin 30.5 pg (27.0-31.0); Mean Platelet Volume 6.9 fL (7.4-10.4); Platelet Count 293 thou/uL (130-400); RBC Distribution Width 12.2 % (11.5-14.5); Red Blood Cell (RBC) Count 4.58 mill/uL (4.70-6.10)
[2021-04-23 04:13] LABS: Anion Gap 11 mmol/L (10-20); BUN (Urea Nitrogen) 26 mg/dL (8.4-25.7); Calc. Creatinine Clearance 168 mL/min (70-130); Calcium 8.1 mg/dL (7.8-10.44); Carbon Dioxide 30 mmol/L (23-31); Chloride 102 mmol/L (98-107); Glucose 200 mg/dL (80-115); Potassium 4.8 mmol/L (3.5-5.1); Sodium 138 mmol/L (136-145)
[2021-04-23 04:32] LABS: Lymphocytes 9 % (21-51); MDiff Complete? YES; Monocytes 14 % (0-10); Neutrophil 77 % (42-75)
[2021-04-23 07:42] LABS: Actual Bicarbonate (HCO3a) 31.5 mEq/L (22-28); Base Excess (BEa) 5.1 mEq/L (-2.0 to +3.0); CO2 Tension 52.5 mmHg (35.0-45.0); Calcium, Ionized (arterial) 1.12 mmol/L (1.12-1.30); Carboxyhemoglobin (COHb) 0.7 gm% (0.0-3.0); Hemoglobin (Hb) 15.7 g/dL (14.0-18.0); O2 Tension (PaO2), arterial 61.1 mmHg (> 80.0); Potassium - ABG Lab 4.76 mmol/L (3.70-5.30)
[2021-04-23 07:48] LABS: ALV-art Gradient 158.475 mmHg (0-20); Puncture Site LRA
[2021-04-23] MEDS: Ascorbic Acid 500 mg Chewable Tablet PO SCH (08:03)
[2021-04-23] MEDS: Zinc Sulfate 220 MG CAP PO SCH (08:03)
[2021-04-23] MEDS: Pantoprazole 40 MG VIAL IVP SCH (08:04)
[2021-04-23] MEDS: Enoxaparin Sodium 60 MG/0.6 ML SYRINGE SC SCH ×2 (08:04→20:18)
[2021-04-23] MEDS: BARICITINIB 2 MG TAB PO SCH (08:04)
[2021-04-23] MEDS: fentaNYL Citrate-0.9 % NaCl/PF 100 ML IV SCH (10:30)
[2021-04-23] MEDS: HumaLOG 300 UNITS/3 ML VIAL SC PRN ×3 (10:35→20:22)
[2021-04-23] MEDS ORDERED: Propofol 1,000 MG/100 ML VIAL IV ONE (13:58)
[2021-04-24] MEDS: METHYLPREDNISOLONE SOD SUCC IVPB SCH (00:49)
[2021-04-24] MEDS: ADMIXTURE FEE IVPB SCH (00:49)
[2021-04-24] MEDS: [UNRECOGNIZED DRUG - OTHER] IVPB SCH (00:49)
[2021-04-24] MEDS: Propofol 1,000 MG/100 ML VIAL IV PRN ×6 (03:03→20:11)
[2021-04-24] MEDS: HumaLOG 300 UNITS/3 ML VIAL SC PRN ×3 (04:00→15:20)
[2021-04-24 05:01] LABS: ALT (SGPT) 204 U/L (8-55); AST (SGOT) 45 U/L (5-34); Albumin 2.7 g/dL (3.4-4.8); Alkaline Phosphatase 53 U/L (40-110); Anion Gap 12 mmol/L (10-20); BUN (Urea Nitrogen) 51 mg/dL (8.4-25.7); Bilirubin, Direct 0.2 mg/dL (0.1-0.3); Bilirubin, Total 0.4 mg/dL (0.2-1.2); Calc. Creatinine Clearance 84 mL/min (70-130); Carbon Dioxide 29 mmol/L (23-31); Chloride 102 mmol/L (98-107); Glucose 229 mg/dL (80-115); Potassium 5.1 mmol/L (3.5-5.1); Protein, Total 5.5 g/dL (5.8-8.1); Sodium 138 mmol/L (136-145)
[2021-04-24 05:22] LABS: Band 1 % (5-11); Hemoglobin 13.8 g/dL (14.0-18.0); Lymphocytes 4 % (21-51); MDiff Complete? YES; Mean Corpuscular HGB CONC 32.3 g/dL (32.0-36.0); Mean Corpuscular Hemoglobin 30.6 pg (27.0-31.0); Mean Corpuscular Volume 94.7 fL (78.0-98.0); Mean Platelet Volume 7.1 fL (7.4-10.4); Monocytes 10 % (0-10); Neutrophil 85 % (42-75); Platelet Count 299 thou/uL (130-400); Platelet Morphology Comment Appears Adequate; RBC Distribution Width 12.3 % (11.5-14.5); RBC Morphology Normal; Red Blood Cell (RBC) Count 4.51 mill/uL (4.70-6.10); White Blood Cell (WBC) Count 9.9 thou/uL (4.8-10.8)
[2021-04-24] MEDS ORDERED: Furosemide 40 MG/4 ML VIAL SLOW IVP SCH (08:45)
[2021-04-24] MEDS: Ascorbic Acid 500 mg Chewable Tablet PO SCH (09:01)
[2021-04-24] MEDS: Zinc Sulfate 220 MG CAP PO SCH (09:01)
[2021-04-24] MEDS: Enoxaparin Sodium 60 MG/0.6 ML SYRINGE SC SCH ×2 (09:01→20:44)
[2021-04-24] MEDS: BARICITINIB 2 MG TAB PO SCH (09:01)
[2021-04-24] MEDS: Pantoprazole 40 MG VIAL IVP SCH (09:02)
[2021-04-25] MEDS: ADMIXTURE FEE IVPB SCH (00:38)
[2021-04-25] MEDS: Propofol 1,000 MG/100 ML VIAL IV PRN ×6 (00:38→21:11)
[2021-04-25] MEDS: [UNRECOGNIZED DRUG - OTHER] IVPB SCH (00:38)
[2021-04-25] MEDS: METHYLPREDNISOLONE SOD SUCC IVPB SCH (00:38)
[2021-04-25] MEDS: HumaLOG 300 UNITS/3 ML VIAL SC PRN ×3 (00:43→16:08)
[2021-04-25] MEDS: Lorazepam 2 MG/ML VIAL SLOW IVP PRN ×3 (03:07→09:29)
[2021-04-25 08:20] LABS: Actual Bicarbonate (HCO3a) 30.8 mEq/L (22-28); Base Excess (BEa) 4.9 mEq/L (-2.0 to +3.0); CO2 Tension 50.1 mmHg (35.0-45.0); Calcium, Ionized (arterial) 1.14 mmol/L (1.12-1.30); Carboxyhemoglobin (COHb) 0.7 gm% (0.0-3.0); Hemoglobin (Hb) 14.8 g/dL (14.0-18.0); O2 Tension (PaO2), arterial 63.3 mmHg (> 80.0); pH, Arterial 7.41 (7.35-7.45)
[2021-04-25 08:21] LABS: ALV-art Gradient 159.275 mmHg (0-20); Puncture Site LRA
[2021-04-25] MEDS: Vecuronium 10 MG VIAL IVP PRN (09:29)
[2021-04-25] MEDS: Zinc Sulfate 220 MG CAP PO SCH (09:29)
[2021-04-25] MEDS: Enoxaparin Sodium 60 MG/0.6 ML SYRINGE SC SCH ×2 (09:29→20:07)
[2021-04-25] MEDS: Pantoprazole 40 MG VIAL IVP SCH (09:29)
[2021-04-25] MEDS: BARICITINIB 2 MG TAB PO SCH (09:29)
[2021-04-25] MEDS: Ascorbic Acid 500 mg Chewable Tablet PO SCH (09:29)
[2021-04-25] MEDS: fentaNYL Citrate/PF 2,000 MCG in Sodium Chloride 0.9% 60 ML IV SCH (09:30)
[2021-04-25 12:00] LABS: Hemoglobin 14.3 g/dL (14.0-18.0); Mean Corpuscular HGB CONC 31.4 g/dL (32.0-36.0); Mean Corpuscular Hemoglobin 30.3 pg (27.0-31.0); Mean Corpuscular Volume 96.5 fL (78.0-98.0); Mean Platelet Volume 7.1 fL (7.4-10.4); Platelet Count 294 thou/uL (130-400); RBC Distribution Width 12.4 % (11.5-14.5); Red Blood Cell (RBC) Count 4.73 mill/uL (4.70-6.10); White Blood Cell (WBC) Count 11.7 thou/uL (4.8-10.8)
[2021-04-25 12:23] LABS: Anion Gap 13 mmol/L (10-20); BUN (Urea Nitrogen) 56 mg/dL (8.4-25.7); Calc. Creatinine Clearance 118 mL/min (70-130); Calcium 8.3 mg/dL (7.8-10.44); Carbon Dioxide 29 mmol/L (23-31); Chloride 103 mmol/L (98-107); Glucose 222 mg/dL (80-115); Potassium 5.4 mmol/L (3.5-5.1); Sodium 140 mmol/L (136-145)
[2021-04-25 12:51] LABS: Band 5 % (5-11); Lymphocytes 9 % (21-51); MDiff Complete? YES; Monocytes 7 % (0-10); Neutrophil 69 % (42-75); RBC Morphology Normal; Reactive Lymphocytes 10 % (0-10)
[2021-04-26] MEDS: HumaLOG 300 UNITS/3 ML VIAL SC PRN ×5 (00:30→20:41)
[2021-04-26] MEDS: Propofol 1,000 MG/100 ML VIAL IV PRN ×4 (00:37→20:37)
[2021-04-26] MEDS: [UNRECOGNIZED DRUG - OTHER] IVPB SCH ×2 (02:17→23:01)
[2021-04-26] MEDS: METHYLPREDNISOLONE SOD SUCC IVPB SCH ×2 (02:17→23:01)
[2021-04-26] MEDS: ADMIXTURE FEE IVPB SCH ×2 (02:17→23:01)
[2021-04-26 04:52] LABS: Anion Gap 11 mmol/L (10-20); BUN (Urea Nitrogen) 57 mg/dL (8.4-25.7); Calc. Creatinine Clearance 131 mL/min (70-130); Calcium 8.2 mg/dL (7.8-10.44); Carbon Dioxide 31 mmol/L (23-31); Chloride 103 mmol/L (98-107); Glucose 255 mg/dL (80-115); Potassium 5.4 mmol/L (3.5-5.1); Sodium 140 mmol/L (136-145)
[2021-04-26 05:08] LABS: Mean Corpuscular HGB CONC 31.4 g/dL (32.0-36.0); Mean Corpuscular Hemoglobin 30.3 pg (27.0-31.0); Mean Corpuscular Volume 96.6 fL (78.0-98.0); Mean Platelet Volume 7.2 fL (7.4-10.4); Platelet Count 313 thou/uL (130-400); RBC Distribution Width 12.5 % (11.5-14.5); Red Blood Cell (RBC) Count 4.62 mill/uL (4.70-6.10); White Blood Cell (WBC) Count 12.5 thou/uL (4.8-10.8)
[2021-04-26 05:09] LABS: Band 2 % (5-11); Lymphocytes 7 % (21-51); MDiff Complete? YES; Monocytes 13 % (0-10); Neutrophil 78 % (42-75); Platelet Morphology Comment Appears Adequate; RBC Morphology Normal
[2021-04-26 08:15] LABS: Actual Bicarbonate (HCO3a) 30.3 mEq/L (22-28); Base Excess (BEa) 4.3 mEq/L (-2.0 to +3.0); CO2 Tension 50.2 mmHg (35.0-45.0); Calcium, Ionized (arterial) 1.15 mmol/L (1.12-1.30); Carboxyhemoglobin (COHb) 0.7 gm% (0.0-3.0); Hemoglobin (Hb) 14.6 g/dL (14.0-18.0); O2 Tension (PaO2), arterial 62.7 mmHg (> 80.0); Potassium - ABG Lab 5.13 mmol/L (3.70-5.30)
[2021-04-26 08:24] LABS: Puncture Site LRA
[2021-04-26] MEDS: Ascorbic Acid 500 mg Chewable Tablet PO SCH (09:10)
[2021-04-26] MEDS: BARICITINIB 2 MG TAB PO SCH (09:11)
[2021-04-26] MEDS: Pantoprazole 40 MG VIAL IVP SCH (09:11)
[2021-04-26] MEDS: Zinc Sulfate 220 MG CAP PO SCH (09:11)
[2021-04-26] MEDS: Enoxaparin Sodium 60 MG/0.6 ML SYRINGE SC SCH ×2 (09:11→20:39)
[2021-04-26] MEDS ORDERED: Lantus 1000 UNITS/10 ML VIAL SC SCH (21:00)
[2021-04-26] MEDS: fentaNYL Citrate/PF 2,000 MCG in Sodium Chloride 0.9% 60 ML IV SCH (23:03)
[2021-04-27] MEDS: Propofol 1,000 MG/100 ML VIAL IV PRN ×4 (04:44→18:04)
[2021-04-27 05:10] LABS: Band 9 % (5-11); Hemoglobin 13.9 g/dL (14.0-18.0); Lymphocytes 3 % (21-51); MDiff Complete? YES; Mean Corpuscular HGB CONC 31.8 g/dL (32.0-36.0); Mean Corpuscular Hemoglobin 30.7 pg (27.0-31.0); Mean Corpuscular Volume 96.6 fL (78.0-98.0); Mean Platelet Volume 7.3 fL (7.4-10.4); Monocytes 9 % (0-10); Neutrophil 79 % (42-75); Platelet Count 307 thou/uL (130-400); Platelet Morphology Comment Appears Adequate; RBC Distribution Width 12.4 % (11.5-14.5); RBC Morphology Normal; Red Blood Cell (RBC) Count 4.51 mill/uL (4.70-6.10); White Blood Cell (WBC) Count 14.4 thou/uL (4.8-10.8)
[2021-04-27 05:14] LABS: Anion Gap 14 mmol/L (10-20); BUN (Urea Nitrogen) 40 mg/dL (8.4-25.7); Bilirubin, Direct 0.3 mg/dL (0.1-0.3); Bilirubin, Total 0.7 mg/dL (0.2-1.2); Calc. Creatinine Clearance 163 mL/min (70-130); Calcium 8.9 mg/dL (7.8-10.44); Carbon Dioxide 31 mmol/L (23-31); Chloride 102 mmol/L (98-107); Glucose 259 mg/dL (80-115); Potassium 4.9 mmol/L (3.5-5.1); Protein, Total 6.3 g/dL (5.8-8.1); Sodium 142 mmol/L (136-145)
[2021-04-27 05:15] LABS: ALT (SGPT) 220 U/L (8-55); AST (SGOT) 81 U/L (5-34); Albumin 3.1 g/dL (3.4-4.8); Alkaline Phosphatase 65 U/L (40-110)
[2021-04-27] MEDS: HumaLOG 300 UNITS/3 ML VIAL SC PRN ×3 (06:04→16:11)
[2021-04-27 08:34] LABS: Actual Bicarbonate (HCO3a) 30.4 mEq/L (22-28); Analyzer IN Cardio ER; Base Excess (BEa) 5.5 mEq/L (-2.0 to +3.0); CO2 Tension 45.4 mmHg (35.0-45.0); Calcium, Ionized (arterial) 1.13 mmol/L (1.12-1.30); Carboxyhemoglobin (COHb) 0.4 gm% (0.0-3.0); Hemoglobin (Hb) 14.5 g/dL (14.0-18.0); O2 Tension (PaO2), arterial 69.8 mmHg (> 80.0); Potassium - ABG Lab 5.19 mmol/L (3.70-5.30); pH, Arterial 7.44 (7.35-7.45)
[2021-04-27 08:35] LABS: Puncture Site LRA
[2021-04-27] MEDS: Ascorbic Acid 500 mg Chewable Tablet PO SCH (09:28)
[2021-04-27] MEDS: BARICITINIB 2 MG TAB PO SCH (09:28)
[2021-04-27] MEDS: Enoxaparin Sodium 60 MG/0.6 ML SYRINGE SC SCH ×2 (09:28→20:35)
[2021-04-27] MEDS: Zinc Sulfate 220 MG CAP PO SCH (09:28)
[2021-04-27] MEDS: Pantoprazole 40 MG VIAL IVP SCH (09:28)
[2021-04-27] MEDS: Lantus 1000 UNITS/10 ML VIAL SC SCH (20:35)
[2021-04-27] MEDS: ADMIXTURE FEE IVPB SCH (22:28)
[2021-04-27] MEDS: [UNRECOGNIZED DRUG - OTHER] IVPB SCH (22:28)
[2021-04-27] MEDS: METHYLPREDNISOLONE SOD SUCC IVPB SCH (22:28)
[2021-04-28] MEDS: fentaNYL Citrate/PF 2,000 MCG in Sodium Chloride 0.9% 60 ML IV SCH (00:19)
[2021-04-28 04:48] LABS: Anion Gap 11 mmol/L (10-20); BUN (Urea Nitrogen) 43 mg/dL (8.4-25.7); Calc. Creatinine Clearance 143 mL/min (70-130); Carbon Dioxide 31 mmol/L (23-31); Chloride 103 mmol/L (98-107); Sodium 140 mmol/L (136-145)
[2021-04-28 04:49] LABS: Calcium 8.8 mg/dL (7.8-10.44); Glucose 288 mg/dL (80-115)
[2021-04-28] MEDS: Propofol 1,000 MG/100 ML VIAL IV PRN ×2 (04:58→11:56)
[2021-04-28] MEDS: HumaLOG 300 UNITS/3 ML VIAL SC PRN ×4 (05:32→21:33)
[2021-04-28 05:34] LABS: Band 1 % (5-11); Hemoglobin 13.6 g/dL (14.0-18.0); Lymphocytes 5 % (21-51); MDiff Complete? YES; Mean Corpuscular HGB CONC 31.2 g/dL (32.0-36.0); Mean Corpuscular Hemoglobin 30.2 pg (27.0-31.0); Mean Corpuscular Volume 96.8 fL (78.0-98.0); Mean Platelet Volume 7.5 fL (7.4-10.4); Monocytes 6 % (0-10); Myelocyte 1 % (0-0); Neutrophil 87 % (42-75); Platelet Count 306 thou/uL (130-400); Platelet Morphology Comment Appears Adequate; RBC Distribution Width 12.5 % (11.5-14.5); RBC Morphology Normal; Red Blood Cell (RBC) Count 4.51 mill/uL (4.70-6.10); White Blood Cell (WBC) Count 14.3 thou/uL (4.8-10.8)
[2021-04-28 07:39] LABS: Actual Bicarbonate (HCO3a) 27.6 mEq/L (22-28); Base Excess (BEa) 3.7 mEq/L (-2.0 to +3.0); CO2 Tension 39.4 mmHg (35.0-45.0); Calcium, Ionized (arterial) 1.22 mmol/L (1.12-1.30); Carboxyhemoglobin (COHb) 0.3 gm% (0.0-3.0); Hemoglobin (Hb) 14.4 g/dL (14.0-18.0); Potassium - ABG Lab 4.84 mmol/L (3.70-5.30); pH, Arterial 7.46 (7.35-7.45)
[2021-04-28 07:59] LABS: O2 Tension (PaO2), arterial 58.5 mmHg (> 80.0); Puncture Site LRA
[2021-04-28] MEDS: Zinc Sulfate 220 MG CAP PO SCH (08:14)
[2021-04-28] MEDS: Enoxaparin Sodium 60 MG/0.6 ML SYRINGE SC SCH ×2 (08:14→21:01)
[2021-04-28] MEDS: Ascorbic Acid 500 mg Chewable Tablet PO SCH (08:14)
[2021-04-28] MEDS: Pantoprazole 40 MG VIAL IVP SCH (08:14)
[2021-04-28 10:07] LABS: ALT (SGPT) 169 U/L (8-55); AST (SGOT) 28 U/L (5-34); Albumin 3.1 g/dL (3.4-4.8); Alkaline Phosphatase 61 U/L (40-110); Bilirubin, Direct 0.3 mg/dL (0.1-0.3); Bilirubin, Total 0.6 mg/dL (0.2-1.2); Protein, Total 6.3 g/dL (5.8-8.1)
[2021-04-28] MEDS: BARICITINIB 2 MG TAB PO SCH (10:25)
[2021-04-28] MEDS: Dexamethasone 10 MG/ML VIAL SLOW IVP SCH (11:56)
[2021-04-28] MEDS: Ciprofloxacin 0.3 % Oint 3.5 GM TUBE EA EYE SCH ×2 (15:39→21:31)
[2021-04-28] MEDS: Lantus 1000 UNITS/10 ML VIAL SC SCH (21:32)
[2021-04-29] MEDS: Propofol 1,000 MG/100 ML VIAL IV PRN (00:39)
[2021-04-29 04:52] LABS: Band 1 % (5-11); Lymphocytes 18 % (21-51); MDiff Complete? YES; Mean Corpuscular HGB CONC 30.2 g/dL (32.0-36.0); Mean Corpuscular Volume 95.9 fL (78.0-98.0); Mean Platelet Volume 7.2 fL (7.4-10.4); Monocytes 12 % (0-10); Neutrophil 69 % (42-75); Platelet Count 361 thou/uL (130-400); Platelet Morphology Comment Appears Adequate; RBC Distribution Width 12.5 % (11.5-14.5); RBC Morphology Normal; Red Blood Cell (RBC) Count 4.84 mill/uL (4.70-6.10); White Blood Cell (WBC) Count 13.4 thou/uL (4.8-10.8)
[2021-04-29 05:05] LABS: Anion Gap 13 mmol/L (10-20); BUN (Urea Nitrogen) 32 mg/dL (8.4-25.7); Calc. Creatinine Clearance 166 mL/min (70-130); Calcium 9.5 mg/dL (7.8-10.44); Carbon Dioxide 33 mmol/L (23-31); Chloride 100 mmol/L (98-107); Glucose 106 mg/dL (80-115); Potassium 4.5 mmol/L (3.5-5.1); Sodium 141 mmol/L (136-145)
[2021-04-29 07:06] LABS: Actual Bicarbonate (HCO3a) 31.9 mEq/L (22-28); Base Excess (BEa) 8.2 mEq/L (-2.0 to +3.0); CO2 Tension 40.4 mmHg (35.0-45.0); Calcium, Ionized (arterial) 1.19 mmol/L (1.12-1.30); Carboxyhemoglobin (COHb) 0.2 gm% (0.0-3.0); Hemoglobin (Hb) 15.2 g/dL (14.0-18.0); Potassium - ABG Lab 4.28 mmol/L (3.70-5.30); pH, Arterial 7.52 (7.35-7.45)
[2021-04-29 07:07] LABS: O2 Tension (PaO2), arterial 50.5 mmHg (> 80.0)
[2021-04-29 07:08] LABS: Puncture Site LRA
[2021-04-29] MEDS: Pantoprazole 40 MG VIAL IVP SCH (09:01)
[2021-04-29] MEDS: Enoxaparin Sodium 60 MG/0.6 ML SYRINGE SC SCH ×2 (09:01→21:03)
[2021-04-29] MEDS: Ascorbic Acid 500 mg Chewable Tablet PO SCH (09:02)
[2021-04-29] MEDS: BARICITINIB 2 MG TAB PO SCH (09:02)
[2021-04-29] MEDS: Zinc Sulfate 220 MG CAP PO SCH (09:02)
[2021-04-29] MEDS: Ciprofloxacin 0.3 % Oint 3.5 GM TUBE EA EYE SCH ×3 (09:03→21:33)
[2021-04-29] MEDS: HumaLOG 300 UNITS/3 ML VIAL SC PRN ×2 (09:58→16:16)
[2021-04-29] MEDS ORDERED: DC Sedation Protocol FS ONE (10:53)
[2021-04-29] MEDS: Dexamethasone 10 MG/ML VIAL SLOW IVP SCH (13:05)
[2021-04-29] MEDS: Lantus 1000 UNITS/10 ML VIAL SC SCH (21:31)
[2021-04-30 04:36] LABS: Band 1 % (5-11); Hemoglobin 14.1 g/dL (14.0-18.0); Lymphocytes 15 % (21-51); MDiff Complete? YES; Mean Corpuscular HGB CONC 30.8 g/dL (32.0-36.0); Mean Corpuscular Hemoglobin 29.4 pg (27.0-31.0); Mean Corpuscular Volume 95.5 fL (78.0-98.0); Mean Platelet Volume 6.9 fL (7.4-10.4); Metamyelocyte 1 % (0-0); Monocytes 5 % (0-10); Neutrophil 78 % (42-75); Platelet Count 325 thou/uL (130-400); Platelet Morphology Comment Appears Adequate; RBC Distribution Width 12.5 % (11.5-14.5); White Blood Cell (WBC) Count 10.1 thou/uL (4.8-10.8)
[2021-04-30 04:47] LABS: ALT (SGPT) 149 U/L (8-55); AST (SGOT) 31 U/L (5-34); Alkaline Phosphatase 61 U/L (40-110); Anion Gap 15 mmol/L (10-20); BUN (Urea Nitrogen) 31 mg/dL (8.4-25.7); Bilirubin, Direct 0.4 mg/dL (0.1-0.3); Calc. Creatinine Clearance 143 mL/min (70-130); Calcium 9.1 mg/dL (7.8-10.44); Carbon Dioxide 31 mmol/L (23-31); Chloride 100 mmol/L (98-107); Glucose 103 mg/dL (80-115); Potassium 4.6 mmol/L (3.5-5.1); Protein, Total 6.5 g/dL (5.8-8.1); Sodium 141 mmol/L (136-145)
[2021-04-30] MEDS: Polyethylene Glycol 3350 17 GM Packet PER TUBE SCH (09:39)
[2021-04-30] MEDS: Senokot S 8.6-50 MG TAB PO SCH ×2 (09:39→20:09)
[2021-04-30] MEDS: Ascorbic Acid 500 mg Chewable Tablet PO SCH (09:40)
[2021-04-30] MEDS: BARICITINIB 2 MG TAB PO SCH (09:40)
[2021-04-30] MEDS: Zinc Sulfate 220 MG CAP PO SCH (09:40)
[2021-04-30] MEDS: Ciprofloxacin 0.3 % Oint 3.5 GM TUBE EA EYE SCH ×2 (09:41→20:07)
[2021-04-30] MEDS: Enoxaparin Sodium 60 MG/0.6 ML SYRINGE SC SCH ×2 (09:41→20:08)
[2021-04-30] MEDS: Dexamethasone 10 MG/ML VIAL SLOW IVP SCH (12:36)
[2021-04-30] MEDS: HumaLOG 300 UNITS/3 ML VIAL SC PRN (17:07)
[2021-04-30] MEDS ORDERED: Melatonin 3 MG TAB PO PRN (17:45)
[2021-04-30] MEDS: Lantus 1000 UNITS/10 ML VIAL SC SCH (20:08)
[2021-05-01 04:29] LABS: Hemoglobin 14.2 g/dL (14.0-18.0); Mean Corpuscular Hemoglobin 30.5 pg (27.0-31.0); Mean Corpuscular Volume 95.2 fL (78.0-98.0); Mean Platelet Volume 6.6 fL (7.4-10.4); Platelet Count 301 thou/uL (130-400); RBC Distribution Width 12.5 % (11.5-14.5); Red Blood Cell (RBC) Count 4.66 mill/uL (4.70-6.10); White Blood Cell (WBC) Count 9.3 thou/uL (4.8-10.8)
[2021-05-01 04:30] LABS: Band 1 % (5-11); Lymphocytes 20 % (21-51); MDiff Complete? YES; Monocytes 8 % (0-10); Neutrophil 71 % (42-75); Platelet Morphology Comment Appears Adequate; RBC Morphology Normal
[2021-05-01 04:38] LABS: Anion Gap 13 mmol/L (10-20); BUN (Urea Nitrogen) 33 mg/dL (8.4-25.7); Calc. Creatinine Clearance 149 mL/min (70-130); Calcium 8.8 mg/dL (7.8-10.44); Carbon Dioxide 29 mmol/L (23-31); Chloride 98 mmol/L (98-107); Glucose 95 mg/dL (80-115); Potassium 4.1 mmol/L (3.5-5.1); Sodium 136 mmol/L (136-145)
[2021-05-01] MEDS: BARICITINIB 2 MG TAB PO SCH (09:18)
[2021-05-01] MEDS: Ascorbic Acid 500 mg Chewable Tablet PO SCH (09:18)
[2021-05-01] MEDS: Enoxaparin Sodium 60 MG/0.6 ML SYRINGE SC SCH ×2 (09:19→20:22)
[2021-05-01] MEDS: Zinc Sulfate 220 MG CAP PO SCH (09:19)
[2021-05-01] MEDS: Senokot S 8.6-50 MG TAB PO SCH ×2 (11:18→20:24)
[2021-05-01] MEDS: Polyethylene Glycol 3350 17 GM Packet PER TUBE SCH (11:18)
[2021-05-01] MEDS: Ciprofloxacin 0.3 % Oint 3.5 GM TUBE EA EYE SCH ×2 (13:10→20:22)
[2021-05-01] MEDS: Dexamethasone 10 MG/ML VIAL SLOW IVP SCH (13:11)
[2021-05-01 13:18] VITALS: BMI 34.4
[2021-05-01] MEDS: HumaLOG 300 UNITS/3 ML VIAL SC PRN (17:06)
[2021-05-01] MEDS: Lantus 1000 UNITS/10 ML VIAL SC SCH (20:23)
[2021-05-02 05:36] LABS: Anion Gap 15 mmol/L (10-20); BUN (Urea Nitrogen) 30 mg/dL (8.4-25.7); Calc. Creatinine Clearance 150 mL/min (70-130); Calcium 8.5 mg/dL (7.8-10.44); Carbon Dioxide 27 mmol/L (23-31); Chloride 98 mmol/L (98-107); Glucose 91 mg/dL (80-115); Potassium 4.3 mmol/L (3.5-5.1); Sodium 136 mmol/L (136-145)
[2021-05-02 05:39] LABS: Band 1 % (5-11); Eosinophils 1 % (0-10); Hemoglobin 13.7 g/dL (14.0-18.0); Lymphocytes 16 % (21-51); MDiff Complete? YES; Mean Corpuscular HGB CONC 30.2 g/dL (32.0-36.0); Mean Corpuscular Hemoglobin 28.7 pg (27.0-31.0); Mean Corpuscular Volume 95.2 fL (78.0-98.0); Mean Platelet Volume 7.4 fL (7.4-10.4); Monocytes 12 % (0-10); Neutrophil 70 % (42-75); Platelet Count 279 thou/uL (130-400); RBC Distribution Width 12.3 % (11.5-14.5); Red Blood Cell (RBC) Count 4.78 mill/uL (4.70-6.10); White Blood Cell (WBC) Count 7.1 thou/uL (4.8-10.8)
[2021-05-02] MEDS: Acetaminophen 325 MG TAB PO PRN (07:50)
[2021-05-02] MEDS: Zinc Sulfate 220 MG CAP PO SCH (09:41)
[2021-05-02] MEDS: Enoxaparin Sodium 60 MG/0.6 ML SYRINGE SC SCH ×2 (09:41→21:23)
[2021-05-02] MEDS: Ascorbic Acid 500 mg Chewable Tablet PO SCH (09:41)
[2021-05-02] MEDS: Ciprofloxacin 0.3 % Oint 3.5 GM TUBE EA EYE SCH ×2 (09:42→21:23)
[2021-05-02] MEDS: Polyethylene Glycol 3350 17 GM Packet PER TUBE SCH (09:44)
[2021-05-02] MEDS: Senokot S 8.6-50 MG TAB PO SCH ×2 (09:44→21:23)
[2021-05-02] MEDS: Dexamethasone 10 MG/ML VIAL SLOW IVP SCH ×2 (11:39→16:14)
[2021-05-03 05:11] LABS: Anion Gap 12 mmol/L (10-20); BUN (Urea Nitrogen) 22 mg/dL (8.4-25.7); Calc. Creatinine Clearance 163 mL/min (70-130); Calcium 8.4 mg/dL (7.8-10.44); Carbon Dioxide 28 mmol/L (23-31); Chloride 100 mmol/L (98-107); Glucose 96 mg/dL (80-115); Magnesium 2.2 mg/dL (1.6-2.6); Potassium 3.7 mmol/L (3.5-5.1); Sodium 136 mmol/L (136-145)
[2021-05-03 05:24] LABS: Band 7 % (5-11); Eosinophils 1 % (0-10); Hemoglobin 13.7 g/dL (14.0-18.0); Lymphocytes 16 % (21-51); MDiff Complete? YES; Mean Corpuscular HGB CONC 32.1 g/dL (32.0-36.0); Mean Corpuscular Hemoglobin 30.6 pg (27.0-31.0); Mean Corpuscular Volume 95.3 fL (78.0-98.0); Mean Platelet Volume 6.9 fL (7.4-10.4); Monocytes 7 % (0-10); Neutrophil 69 % (42-75); Platelet Count 244 thou/uL (130-400); RBC Distribution Width 12.3 % (11.5-14.5); Red Blood Cell (RBC) Count 4.49 mill/uL (4.70-6.10); White Blood Cell (WBC) Count 7.7 thou/uL (4.8-10.8)
[2021-05-03] MEDS: Zinc Sulfate 220 MG CAP PO SCH (09:41)
[2021-05-03] MEDS: Ascorbic Acid 500 mg Chewable Tablet PO SCH (09:41)
[2021-05-03] MEDS: Enoxaparin Sodium 60 MG/0.6 ML SYRINGE SC SCH ×2 (09:41→20:18)
[2021-05-03] MEDS: Ciprofloxacin 0.3 % Oint 3.5 GM TUBE EA EYE SCH ×2 (09:42→20:18)
[2021-05-03] MEDS: Senokot S 8.6-50 MG TAB PO SCH ×2 (11:00→20:18)
[2021-05-03] MEDS: Polyethylene Glycol 3350 17 GM Packet PER TUBE SCH (11:00)
[2021-05-03] MEDS: Dexamethasone 10 MG/ML VIAL SLOW IVP SCH (14:58)
[2021-05-04 08:00] LABS: Magnesium 2.1 mg/dL (1.6-2.6)
[2021-05-04] MEDS: Ascorbic Acid 500 mg Chewable Tablet PO SCH (09:04)
[2021-05-04] MEDS: Zinc Sulfate 220 MG CAP PO SCH (09:04)
[2021-05-04] MEDS: Enoxaparin Sodium 60 MG/0.6 ML SYRINGE SC SCH ×2 (09:05→20:03)
[2021-05-04] MEDS: Senokot S 8.6-50 MG TAB PO SCH ×2 (09:05→20:04)
[2021-05-04] MEDS: Ciprofloxacin 0.3 % Oint 3.5 GM TUBE EA EYE SCH ×2 (09:05→20:04)
[2021-05-04] MEDS: Polyethylene Glycol 3350 17 GM Packet PER TUBE SCH (09:05)
[2021-05-04] MEDS ORDERED: Dexamethasone 4 MG TAB PO SCH (17:00)
[2021-05-04] MEDS: Dexamethasone 10 MG/ML VIAL SLOW IVP SCH (18:15)
[2021-05-05] MEDS: Ascorbic Acid 500 mg Chewable Tablet PO SCH (08:33)
[2021-05-05] MEDS: Zinc Sulfate 220 MG CAP PO SCH (08:34)
[2021-05-05] MEDS: Enoxaparin Sodium 60 MG/0.6 ML SYRINGE SC SCH (08:35)
[2021-05-05] MEDS: Senokot S 8.6-50 MG TAB PO SCH (08:35)
[2021-05-05] MEDS: Polyethylene Glycol 3350 17 GM Packet PER TUBE SCH (08:35)
[2021-05-05 08:51] LABS: #Eosinphils 0.1 thou/uL (0.0-0.7); #Lymphocytes 1.2 thou/uL (1.20-3.40); #Monocytes 0.7 thou/uL (0.11-0.59); #Neutrophils 4.1 thou/uL (1.40-6.50); %Basophils 0.6 % (0.0-1.0); %Lymphocytes 19.9 % (21.0-51.0); %Monocytes 10.8 % (0.0-10.0); %Neutrophils 66.7 % (42.0-75.0); Hemoglobin 13.1 g/dL (14.0-18.0); Mean Corpuscular HGB CONC 31.9 g/dL (32.0-36.0); Mean Corpuscular Hemoglobin 30.4 pg (27.0-31.0); Mean Corpuscular Volume 95.2 fL (78.0-98.0); Mean Platelet Volume 6.8 fL (7.4-10.4); Platelet Count 187 thou/uL (130-400); RBC Distribution Width 12.2 % (11.5-14.5); White Blood Cell (WBC) Count 6.1 thou/uL (4.8-10.8)
[2021-05-05 09:06] LABS: Anion Gap 10 mmol/L (10-20); BUN (Urea Nitrogen) 13 mg/dL (8.4-25.7); Calc. Creatinine Clearance 187 mL/min (70-130); Calcium 8.4 mg/dL (7.8-10.44); Carbon Dioxide 30 mmol/L (23-31); Chloride 100 mmol/L (98-107); Glucose 88 mg/dL (80-115); Magnesium 2.1 mg/dL (1.6-2.6); Potassium 4.3 mmol/L (3.5-5.1); Sodium 136 mmol/L (136-145)
[2021-05-05 09:30] VITALS: BP 110/70; TEMP 97.8
[2021-05-05] MEDS: Ciprofloxacin 0.3 % Oint 3.5 GM TUBE EA EYE SCH (12:20)
== END 2021-05-05 16:29 | DRG 870 ==
LOC: ERS 06:47 → T4-A 09:16 → CCU 11:30 → T4-B 05-03 14:47
PROVIDERS: ADMIT Internal Medicine; ATTEND Internal Medicine
PROC: 8E0ZXY6 Isolation (ICD-10-PCS; 2021-04-15)
PROC: XW0DXM6 Introduction of Baricitinib into Mouth and Pharynx, External Approach, New Technology Group 6 (ICD-10-PCS; 2021-04-18)
PROC: 5A09357 Assistance with Respiratory Ventilation, Less than 24 Consecutive Hours, Continuous Positive Airway Pressure (ICD-10-PCS; 2021-04-18)
PROC: 5A1955Z Respiratory Ventilation, Greater than 96 Consecutive Hours (ICD-10-PCS; principal; 2021-04-19)
PROC: 0BH17EZ Insertion of Endotracheal Airway into Trachea, Via Natural or Artificial Opening (ICD-10-PCS; 2021-04-19)
DX: A41.89 Other specified sepsis (principal); U07.1 COVID-19; J12.82 Pneumonia due to coronavirus disease 2019; J96.01 Acute respiratory failure with hypoxia; E87.1 Hypo-osmolality and hyponatremia; N18.2 Chronic kidney disease, stage 2 (mild); E66.9 Obesity, unspecified; R65.20 Severe sepsis without septic shock; J45.909 Unspecified asthma, uncomplicated; R73.9 Hyperglycemia, unspecified; T38.0X5A Adverse effect of glucocorticoids and synthetic analogues, initial encounter; E87.5 Hyperkalemia; Z98.890 Other specified postprocedural states; Z78.1 Physical restraint status; Z68.36 Body mass index [BMI] 36.0-36.9, adult
CPT/HCPCS: 36415; 36416; 36600; 70450; 71045; 71275; 80048; 80053; 80076; 82728; 82805; 83735; 84100; 84484; 85007; 85025; 85027; 85379; 86140; 94002; 94003; 94660; 96365; 96366; 96375; C9113; J0456; J0696; J1100; J1650; J1815; J1940; J2060; J2250; J2704; J2930; J3010; J3490; J7050; J8540

== ENCOUNTER 2021-05-27 11:40 | Outpatient (CLI) | payer OTHER | END 2021-05-27 11:41 | disposition home or self-care (01) | LOC: RAD 11:40 | PROVIDERS: ATTEND Internal Medicine Critical Care Medicine | DX: R06.00 Dyspnea, unspecified (principal); R91.8 Other nonspecific abnormal finding of lung field | CPT/HCPCS: 71046 ==

== ENCOUNTER 2021-08-21 11:26 | Outpatient (CLI) | payer OTHER | END 2021-08-21 11:27 | disposition home or self-care (01) | LOC: RAD 11:26 | PROVIDERS: ATTEND Internal Medicine Critical Care Medicine | DX: R06.00 Dyspnea, unspecified (principal) | CPT/HCPCS: 71046 ==